=== PATIENT | female | born 1995 | race Caucasian/White ===

== ENCOUNTER → 2020-06-22 | Outpatient (CLI) | payer MEDICAID ==
[2020-06-22 14:21] LABS: HEMATOCRIT 43.9 % (37.0-47.0); HEMOGLOBIN 15.1 g/dL (12.5-16.0); MEAN CELL VOLUME 92 fl (78-100); MEAN CORPUSCULAR HEMOGLOBIN 32 pg (27-31); MEAN CORPUSCULAR HGB CONC 34 g/dL (33-37); MEAN PLATELET VOLUME 8.4 fl (7.4-10.4); PLATELET COUNT 287 K/mm3 (130-400); RED BLOOD COUNT 4.79 M/mm3 (4.10-5.30); RED CELL DISTRIBUTION WIDTH 12.4 % (11.5-14.5); WHITE BLOOD COUNT 11.4 K/mm3 (4.8-10.8)
[2020-06-22 14:34] LABS: ALBUMIN 4.5 g/dL (3.5-5.0)
[2020-06-22 14:35] LABS: CALCIUM 9.1 mg/dL (8.3-10.5)
[2020-06-22 14:36] LABS: TOTAL PROTEIN 7.7 g/dL (6.4-8.3)
[2020-06-22 14:38] LABS: TOTAL BILIRUBIN 0.3 mg/dL (0.2-1.2)
[2020-06-22 15:14] LABS: LYMPHOCYTE 13 % (20-51); MONOCYTE 4 % (3-10); NEUTROPHILS 80 % (42-75)
[2020-06-22 22:41] LABS: FOLATE (FOLIC ACID) >20.0 ng/mL (2.0-20.0)
== END ==
LOC: LAB 14:04
PROVIDERS: Nurse Practitioner
DX: R20.2 Paresthesia of skin (principal)

== ENCOUNTER → 2024-03-18 | Outpatient (CLI) | payer MEDICAID ==
[2024-03-18 17:33] LABS: BASO # 0.03 K/mm3 (0.02-0.10); EOS # 0.12 K/mm3 (0.04-0.40); EOS % 1.3 % (1.0-5.0); HEMATOCRIT 45.4 % (37.0-47.0); HEMOGLOBIN 15.1 g/dL (12.5-16.0); LYMPH# 2.49 K/mm3 (1.50-4.00); MEAN CELL VOLUME 92 fl (78-100); MEAN CORPUSCULAR HEMOGLOBIN 31 pg (27-31); MEAN CORPUSCULAR HGB CONC 33 g/dL (33-37); MEAN PLATELET VOLUME 8.6 fl (7.4-10.4); MONO # 0.73 K/mm3 (0.20-0.80); NEU # 5.54 K/mm3 (1.40-6.50); PLATELET COUNT 301 K/mm3 (130-400); RED BLOOD COUNT 4.95 M/mm3 (4.10-5.30); WHITE BLOOD COUNT 8.9 K/mm3 (4.8-10.8)
[2024-03-18 17:38] LABS: ALBUMIN 4.8 g/dL (3.5-5.0)
[2024-03-18 17:39] LABS: CALCIUM 9.5 mg/dL (8.3-10.5)
[2024-03-18 17:40] LABS: TOTAL PROTEIN 8.3 g/dL (6.4-8.3)
[2024-03-18 17:42] LABS: TOTAL BILIRUBIN 0.3 mg/dL (0.2-1.2)
[2024-03-19 19:53] LABS: FOLLICLE STIMULATING HORMONE 3.5 mIU/mL (())
== END ==
LOC: LAB 17:16
PROVIDERS: Nurse Practitioner
DX: Z00.00 Encounter for general adult medical examination without abnormal findings (principal); M25.50 Pain in unspecified joint; R53.83 Other fatigue; R63.8 Other symptoms and signs concerning food and fluid intake